=== PATIENT | female | born 2000 | race Caucasian/White ===

== ENCOUNTER → 2022-07-04 | Emergency (ER) | payer OTHER ==
[~2022-07-04] VITALS: Ht 162.6 cm; Wt 59.0 kg
== END | disposition home or self-care (01) ==
LOC: ER 13:41
DX: R11.10 Vomiting, unspecified (principal)

== ENCOUNTER 2022-07-06 08:54 | Emergency (ER) | payer OTHER ==
[~2022-07-06] VITALS: Ht 162.6 cm; Wt 59.0 kg
== END 2022-07-06 16:37 | disposition home or self-care (01) ==
LOC: ER 08:54
DX: K29.70 Gastritis, unspecified, without bleeding (principal)